=== PATIENT | male | born 1995 | race Caucasian/White ===

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

== ENCOUNTER 2024-02-21 04:30 | Emergency (ER) | payer SELFPAY ==
[~2024-02-21] VITALS: Ht 180.3 cm; Wt 72.0 kg
[~2024-02-21 04:30] MED LIST changes: +IMODIUM2 MG PO
[2024-02-21 05:52] LABS: BASO% 0.3 % (0-3); EOS% 0.7 % (0-8); HEMATOCRIT 39.7 % (39.0-50.0); HEMOGLOBIN 14.3 g/dl (14.0-18.0); IMMATURE GRANULOCYTES 0.8 % (0.0-5.0); MEAN CELL VOLUME 86.5 fL CALC (80.0-100.0); MEAN CORPUSCULAR HGB 31.2 pG CALC (26.0-32.0); NEUT# 3.35 thou/uL (1.82-7.42); NEUT% 47.2 % (42-76); RED BLOOD COUNT 4.59 mill/uL (4.70-6.10); RED CELL DISTRI WIDTH 11.9 % (11.5-15.5)
[2024-02-21 05:58] LABS: URINE BILIRUBIN - DIPSTICK Negative (NEGATIVE); URINE BLOOD DIPSTICK Trace-intact (NEGATIVE); URINE GLUCOSE - DIPSTICK Negative (NEGATIVE); URINE KETONE Negative (NEGATIVE); URINE LEUK ESTERASE Negative (NEGATIVE); URINE NITRITE - DIPSTICK Negative (Negative); URINE PH 5.5 (4.5-8.0); URINE PROTEIN - DIPSTICK Negative (NEG-TRACE); URINE UROBILINOGEN - DIPSTICK 0.2 E.U./dL (0.2)
[2024-02-21 06:05] LABS: URINE COLOR Yellow
[2024-02-21 06:14] LABS: ALBUMIN 4.8 g/dL (3.2-5.0); ALKALINE PHOSPHATASE 45 u/l (38-126); ANION GAP 15 (6-22 (CALC)); BILIRUBIN, TOTAL 0.8 mg/dL (0.2-1.3); BUN 10 mg/dL (9-20); BUN/CREATININE RATIO 11 (12-20 (CALC)); CARBON DIOXIDE 21 mmol/l (22-30); CHLORIDE 112 mmol/l (95-108); ESTIMATED GFR 106 ML/MIN (>=90 (CALC)); ETHYL ALCOHOL 184 mg/dl (0-30); POTASSIUM 3.8 mmol/l (3.5-5.1); SGOT/AST 61 u/l (17-59); SODIUM 144 mmol/l (137-146); TOTAL PROTEIN 7.7 g/dL (6.3-8.2)
[2024-02-21 06:40] VITALS: BP 128/78
== END 2024-02-21 06:40 | DRG 605 ==
LOC: ED 04:30
PROVIDERS: Family Medicine
DX: S51.812A Laceration without foreign body of left forearm, initial encounter (principal); F10.129 Alcohol abuse with intoxication, unspecified; Y90.6 Blood alcohol level of 120-199 mg/100 ml; F19.10 Other psychoactive substance abuse, uncomplicated; X78.9XXA Intentional self-harm by unspecified sharp object, initial encounter